=== PATIENT | female | born 1965 | race Caucasian/White ===

== ENCOUNTER 2025-03-10 08:46 | Outpatient (OUT) | payer BC, SELFPAY ==
--- NOTE | 2025-03-10 08:56 | ECG_ITS ---
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 Measurements Intervals [place] Rate: 47 P: 4 OR: 223 QRS: 6 QRSD: 104 T: 10 QT: 435 QTc: 388 Interpretive Statements SINUS BRADYCARDIA WITH FIRST DEGREE AV BLOCK WITH OCCASIONAL SUPRAVENTRICULAR PREMATURE COMPLEXES LOW QRS VOLTAGE IN PRECORDIAL LEADS [QRS DEFLECTION < 1.0 mV IN CHEST LEADS] Abnormal ECG No previous ECG available for comparison Electronically Signed On 03-10-2025 17:48:06 EDT by SANDRA ALONZO M.D.
--- NOTE | 2025-03-10 09:57 | PM.PRESUREVA ---
History of Present Illness History of Present Illness Chief complaint: Right Kidney Stone Narrative: Patient presents for presurgical testing. Please see HPI from Dr. Chawla dated February 19, 2025. Review of Systems ROS Narrative Please see ROS from Dr. Chawla dated February 19, 2025. PFSH PFSH Medical History (Updated 03/10/25 @ 09:34 by Jackelyn Hernandez NP) Hypertension ?I10 - Essential (primary) hypertension (ICD-10) Back pain ?M54.9 - Dorsalgia, unspecified (ICD-10) Osteoarthritis ?M19.90 - Unspecified osteoarthritis, unspecified site (ICD-10) Arthritis ?M19.90 - Unspecified osteoarthritis, unspecified site (ICD-10) Anemia ?D64.9 - Anemia, unspecified (ICD-10) Kidney stones ?N20.0 - Calculus of kidney (ICD-10) Constipation ?K59.00 - Constipation, unspecified (ICD-10) S/P extracorporeal shock wave therapy ?Z98.890 - Other specified postprocedural states (ICD-10) Menopause ?Z78.0 - Asymptomatic menopausal state (ICD-10) Surgical History (Updated 03/10/25 @ 09:29 by Jackelyn Hernandez NP) H/O hemorrhoidectomy ?Z98.890 - Other specified postprocedural states (ICD-10) H/O vein stripping ?Z98.890 - Other specified postprocedural states (ICD-10) S/P cataract extraction and insertion of intraocular lens ?Z98.49 - Cataract extraction status, unspecified eye (ICD-10) ?Z96.1 - Presence of intraocular lens (ICD-10) History of colonoscopy ?Z98.890 - Other specified postprocedural states (ICD-10) S/P ureteral stent placement ?Z96.0 - Presence of urogenital implants (ICD-10) S/P cystoscopy ?Z98.890 - Other specified postprocedural states (ICD-10) H/O ureteroscopy ?Z98.890 - Other specified postprocedural states (ICD-10) Family History (Updated 03/10/25 @ 09:29 by Jackelyn Hernandez NP) Other Family history of breast cancer Family history of hypertension Social History (Updated 03/10/25 @ 09:26 by Jackelyn Hernandez NP) Within the past year, how often did you have a drink containing alcohol: 2-4 times a month Smoking status: Never smoker Non-prescribed substance use: cannabis (any form) Previous occupational history: Retired -[employer] Highest level of school completed/degree received: Associate degree: academic program Meds Home Medications and Allergies Home Medications ?Medication ?Instructions ?Recorded ?Confirmed ?Type amlodipine 5 mg-benazepril 10 mg 1 cap PO DAILY 03/10/25 03/10/25 History capsule hydrochlorothiazide 12.5 mg capsule 12.5 mg PO DAILY 03/10/25 03/10/25 History magnesium citrate 100 mg capsule 200 mg PO DAILY 03/10/25 03/10/25 History metoprolol succinate 50 mg 50 mg PO DAILY 03/10/25 03/10/25 History tablet,extended release 24 hr multivitamin (Daily Multi-Vitamin 1 tab PO DAILY 03/10/25 03/10/25 History tablet) Allergies Allergy/AdvReac Type Severity Reaction Status Date / Time latex Allergy Rash Verified 03/10/25 09:23 Sulfa (Sulfonamide Allergy Rash Verified 03/10/25 09:23 Antibiotics) Exam Narrative Exam Narrative: Constitutional: Awake, alert, comfortable, well-appearing, nontoxic, interactive, vital signs as charted Head: Normocephalic, atraumatic Neck: Supple, normal appearance, normal range of motion, no meningeal signs, no lymphadenopathy Respiratory: No respiratory distress, breath sounds clear Cardiovascular: Bradycardic rate, regular rhythm, no murmur Abdomen: Nontender, normal bowel sounds, soft, no CVA tenderness Musculoskeletal: Normal gait, no swelling or edema Skin: No rashes or induration, no lesions, only visible skin inspected Neuro: No neurological deficits, normal sensation Psychiatric: Oriented ?3, normal affect Assessment and Plan Assessment and Plan (1) Kidney stones: Plan Cystoscopy, right retrograde, right ureteroscopy, holmium laser, possible right stent placement scheduled with Dr. Chawla March 20, 2025.
[2025-03-10 09:59] LABS: Hematocrit 39.2 % (36.0-48.0); Hemoglobin 13.7 g/dL (12.0-16.0); Immature Granulocytes Abs Auto 0.01 10^3/uL (0.00-0.03); Immature Granulocytes Pct Auto 0.2 % (0.0-0.5); Lymphocytes Absolute Auto 1.3 10^3/uL (1.2-3.8); Mean Corpuscular HGB Conc 34.9 g/dL (29.9-35.2); Mean Corpuscular Hemoglobin 31.9 pg (26.7-34.0); Mean Corpuscular Volume 91.2 fL (81.0-99.0); Platelet Count 218 10^3/uL (150-450); Red Blood Count 4.30 10^6/uL (4.20-5.40); White Blood Count 5.2 10^3/uL (4.0-11.0)
[2025-03-10 10:14] LABS: INR 1.02; Partial Thromboplastin Time 27.3 sec (22.3-36.2); Prothrombin Time 10.8 sec (9.0-11.6)
[2025-03-10 10:18] LABS: Anion Gap 8.4; Blood Urea Nitrogen 13.0 mg/dL (7.0-18.0); Calcium 9.5 mg/dL (8.5-10.1); Carbon Dioxide 30.0 mmol/L (21.0-32.0); Chloride 107 mmol/L (98-107); Estimated GFR (African America >60 (>=60 mL/min/1.73m^2); Estimated GFR (Non-African Ame >60 (>=60 mL/min/1.73m^2); Glucose 111 mg/dL (74-106); Potassium 4.4 mmol/L (3.5-5.1); Sodium 141 mmol/L (136-145)
== END 2025-03-10 08:47 | disposition home or self-care (01) ==
LOC: PST 08:50
PROVIDERS: PCP Family Medicine; Visit Provider Urology
DX: Z01.810 Encounter for preprocedural cardiovascular examination (principal); Z01.812 Encounter for preprocedural laboratory examination; Z01.818 Encounter for other preprocedural examination; N20.0 Calculus of kidney
CPT/HCPCS: 80048; 85025; 85610; 85730; 93005; G0463

== ENCOUNTER 2025-03-20 08:16 | Day surgery (SDC) | payer BC, SELFPAY ==
[2025-03-10 09:49] VITALS: BP 156/83; PULSE 50; TEMP 36.2; O2SAT 98; BMI 46.2
[2025-03-20] VITALS (12 sets, daily range): BP systolic 121–165; BP diastolic 72–99; PULSE 49–80; TEMP 36.4–36.8; O2SAT 93–99; BMI 45.4
[2025-03-20] MEDS: CEFAZOLIN SODIUM 2 GM/50 ML D5W PREMIX IV (09:04)
--- NOTE | 2025-03-20 10:08 | P.URON_ITS ---
Urology Surgery Operative Note Operative Note Procedure Date: 03/20/25 Time Out Performed: yes Pre-op Diagnosis: Right renal calculi Post-op Diagnosis: same as pre-op Procedures performed: 1. Cystoscopy. 2. Right ureteroscopy. 3. Right pyeloscopy. 4. Thulium laser lithotripsy of a large right renal calculus. 5. Stone fragment basket extraction. 6. Placement of 6 Panamanian variable length right ureteral stent Anesthesia: MARK Primary Surgeon: Kirk Chawla Complications: None Estimated blood loss (mL): 2 Findings: Large hard right lower pole renal calculus Specimens: Right renal calculus fragments Drains: 6 Panamanian variable length right ureteral stent Indications for Procedures: This lady has recurrent nephrolithiasis. On her right side in the lower pole she has a 1 cm stone. She is desirous for ureteroscopic laser lithotripsy and possible right stent placement. She has signed an informed consent after risks were explained. Detailed description of Procedure: The patient was brought to the operating room and placed on the operating room table in the supine position. SCDs were placed on the lower extremities and turned on and functioning during the entire case. Timeout was done by all parties in the room. We all agreed upon the patient's identification and the planned procedures for this patient. Genn. anesthesia was then administered. The patient was then repositioned into the modified dorsal lithotomy position. All pressure points were satisfactorily padded. Genitalia were sterilely prepped and draped in usual fashion. I started by passing a 22 Panamanian Olympus cystoscope per urethra and into the bladder. Panendoscopy in the bladder revealed no evidence of any lesions tumors or stones. I then passed a Glidewire through the scope and up the right ureter and into the kidney. 1 could see the stone in the lower pole via fluoroscopy. The scope was removed. I then passed a 10/12 Panamanian ureteral access sheath over the wire and up to the L5 position. The wire and stylette were then removed. I then passed a flexible ureteroscope through the access sheath and into the ureter. I then ascended up the ureter and then went into the kidney and scoped throughout all of the upper mid and lower pole calyces. There were a couple Jj's plaques in the lower pole. There were no stones in the upper or mid calyces. In the lower pole I did encounter a large very hard appearing stone. We then passed a 270 Angstrom laser fiber through the scope. I set the thulium laser at dusting at power level 10 initially but this was not enough. We had to increase to power level 15. We then began dusting the stone. It steadily fragmented and dusted. I saved a few fragments near the end. I then passed a 0 tip nitinol basket and engaged the fragments and these were extracted and sent for stone analysis. Upon completion, there was no endoscopic evidence of stone, just copious amounts of stone dust. Fluoroscopically no more stone was visible. The scope was then removed. The Glidewire was passed through the sheath into the kidney and the sheath was then removed. The scope was backloaded over the wire and passed into the bladder. I then slid a 6 Panamanian variable length stent over the wire up into the kidney. The wire was removed and there were good curls in the kidney and in the bladder. The bladder was drained of its contents and the scope was then removed. She was then [facility] and wheeled to PACU in stable condition.
== END 2025-03-20 12:20 | disposition home or self-care (01) ==
LOC: SURGOUT 08:17
PROVIDERS: PCP Family Medicine; Visit Provider Urology
PROC: (CPT 918; principal; 2025-03-20 09:10)
DX: N20.0 Calculus of kidney (principal); Z87.442 Personal history of urinary calculi; E66.01 Morbid (severe) obesity due to excess calories; Z68.42 Body mass index [BMI] 45.0-49.9, adult; I10 Essential (primary) hypertension; M19.90 Unspecified osteoarthritis, unspecified site
CPT/HCPCS: 52356; 36415; 76000; 82365; 99999; J0131; J0690; J1100; J1885; J2250; J2405; J2704; J3010

== ENCOUNTER 2025-05-06 08:13 | Outpatient (OUT) | payer BC, SELFPAY ==
--- OUTSIDE RECORDS SUMMARY | 2025-04-29 10:53 | XMS_ITS | Encounter Summary ---
Author Organization [facility] Address [facility] [place] [address] Care Team Providers Care Academic Affairs Specialist Name Role Phone Zeke Velasquez DO Primary Care Provider + David Valdivia MD Unavailable [phone] Source Comments In the event this information is protected by the Federal Confidentiality of Alcohol and Drug AbusePatient Records regulations: The Federal rules restrict any use of the information to criminally investigate or prosecute any alcohol or drug abuse patient.[facility] Encounter Details Date Type Department Care Team (Late st Contact Info) Description 12/03/2018 Patient Msg Urology [address] [address] Nancy Gloria, MICHELLE.MARKETING OUTREACH COORDINATOR [address] [place], [place] [id number] RE:Stone Meds Social History Tobacco Use Types Packs/Day Years Used Date Smoking Tobacco: Never Smokeless Tobacco: Never PHQ-2 Answer Date Recorded PHQ2 Score 0 10/15/2018 Comments Unknown Sex and Gender Information Value Date Recorded Sex Assigned at Not on file Legal Sex Female 11:50 AM EST Gender Identity Not on file Sexual Orientation Not on file documented as of this encounter Functional Status * Are you deaf or do you have serious difficulty hearing? Answer Date of Assessment Author No 10/16/2018 12:11 PM EDT Naz Morocho RN * Are you blind or do you have serious difficulty seeing, even when wearing glasses? Answer Date of Assessment Author No 10/16/2018 12:11 PM EDT Naz Morocho RN * Do you have serious difficulty walking or climbing stairs? Answer Date of Assessment Author No 10/16/2018 12:11 PM EDT Naz Morocho RN * Do you have difficulty dressing or bathing? Answer Date of Assessment Author No 10/16/2018 12:11 PM EDT Naz Morocho RN * Because of a physical, mental, or emotional condition, do you have difficulty doing errands alone such as visiting a doctor's office or shopping? Answer Date of Assessment Author No 10/16/2018 12:11 PM TOBIT Naz Morocho RN documented as of this encounter Mental Status * Because of a physical, mental, or emotional condition, do you have serious difficulty concentrating, remembering, or making decisions? Answer Entry Date Author No 10/16/2018 12:11 PM TOBIT Naz Morocho RN documented in this encounter Plan of Treatment Not on file documented as of this encounter Visit Diagnoses Not on filedocumented in this encounter Care Teams Academic Affairs Specialist Relationship Specialty Start Date End Date Zeke Velasquez DO PCP - General Family Medicine 09/13/18 David Valdivia MD [address] [place] [address] Referring Urology 09/13/18 documented as of this encounter
--- OUTSIDE RECORDS SUMMARY | 2025-04-29 10:53 | XMS_ITS | Encounter Summary ---
Author Organization [facility] Address [facility] [place] [address] Care Team Providers Care Continuous Improvement Specialist Name Role Phone Zeke Velasquez DO Primary Care Provider + David Valdivia MD Unavailable [phone] Source Comments In the event this information is protected by the Federal Confidentiality of Alcohol and Drug AbusePatient Records regulations: The Federal rules restrict any use of the information to criminally investigate or prosecute any alcohol or drug abuse patient.[facility] Encounter Details Date Type Department Care Team (Late st Contact Info) Description 12/25/2018 Patient Msg Urology [address] [address] Nancy Gloria, MICHELLE.STORE OPERATIONS ASSOCIATE [address] [place], [place] [phone] labs Social History Tobacco Use Types Packs/Day Years [...] 10/16/2018 12:11 PM EDT Naz Morocho RN documented as of this encounter Mental Status * Because of a physical, mental, or emotional condition, do you have serious difficulty concentrating, remembering, or making decisions? Answer Entry Date Author No 10/16/2018 12:11 PM EDT Naz Morocho RN documented in this encounter Plan of Treatment Not on file documented as of this encounter Visit Diagnoses Not on filedocumented in this encounter Care Teams Continuous Improvement Specialist Relationship Specialty Start Date End Date Zeke Velaqsuez DO PCP - General Family Medicine 09/13/18 David Valdivia MD [address] [place] [address] Referring Urology 09/13/18 documented as of this encounter
--- OUTSIDE RECORDS SUMMARY | 2025-04-29 10:54 | XMS_ITS | Clinical Summary ---
Author Organization [facility] Address [address] [place] [address] Care Team Providers Care Carbon Furnace Operator Name Role Phone Unavailable Primary Care Provider Unavailabl e Social History Tobacco Use Types Packs/Day Years Used Date Smoking Tobacco: Never Assessed Comments Unknown Sex and Gender Information Value Date Recorded Sex Assigned at Not on file Legal Sex Female 7:17 PM EDT Gender Identity Not on file Sexual Orientation Not on file Last Filed Vital Signs Vital Sign Reading Time Taken Comments Blood Pressure - - Pulse - - Temperature - - Respiratory Rate - - Oxygen Saturation - - Inhaled Oxygen Concentration - - Weight 137 kg (303 lb) 04/22/2020 12:00 PM EDT Height 162.6 cm (5' 4 ) 04/22/2020 12:00 PM EDT Body Mass Index 52.01 04/22/2020 12:00 PM EDT Plan of Treatment Not on file Insurance [employer]
--- OUTSIDE RECORDS SUMMARY | 2025-04-29 10:54 | XMS_ITS | Encounter Summary ---
Author Organization [facility] Address [facility] [place] [address] Care Team Providers Care Otolaryngology Surgeon Name Role Phone Zeke Velasquez DO Primary Care Provider + David Valdivia MD Unavailable [phone] Source Comments In the event this information is protected by the Federal Confidentiality of Alcohol and Drug AbusePatient Records regulations: The Federal rules restrict any use of the information to criminally investigate or prosecute any alcohol or drug abuse patient.[facility] Encounter Details Date Type Department Care Team (Late st Contact Info) Description 04/14/2019 Patient Msg Urology [address] [phone] Nancy Gloria APRN.POOL FINISHER [address] [place], [place] [phone] RE:24 HR TEST Social History Tobacco Use Types Packs/Day Years [...] on filedocumented in this encounter Care Teams Otolaryngology Surgeon Relationship Specialty Start Date End Date Zeke Velasquez DO PCP - General Family Medicine 09/13/18 David Valdivia MD [address] [place] [address] Referring Urology 09/13/18 documented as of this encounter
--- OUTSIDE RECORDS SUMMARY | 2025-04-29 10:54 | XMS_ITS | Encounter Summary ---
Author Organization [facility] Address [facility] [place] [address] Care Team Providers Care Core Finisher Name Role Phone Zeke Velasquez DO Primary Care Provider + David Valdivia MD Unavailable [phone] Source Comments In the event this information is protected by the Federal Confidentiality of Alcohol and Drug AbusePatient Records regulations: The Federal rules restrict any use of the information to criminally investigate or prosecute any alcohol or drug abuse patient.[facility] Encounter Details Date Type Department Care Team (Late st Contact Info) Description 10/16/2018 Patient Msg Urology [address] [address] Nancy Gloria, MICHELLE.MOTION PICTURE PROJECTIONIST [address] [place], [place] [phone] Stone mgmt Social History Tobacco Use Types Packs/Day Years [...] on filedocumented in this encounter Care Teams Core Finisher Relationship Specialty Start Date End Date Zeke Velasquez DO PCP - General Family Medicine 09/13/18 David Valdivia MD [address] [place] [address] Referring Urology 09/13/18 documented as of this encounter
--- OUTSIDE RECORDS SUMMARY | 2025-04-29 10:54 | XMS_ITS | Clinical Summary ---
Author Organization [facility] Address [address] [place] [address] Care Team Providers Care Lipcoat Sprayer Name Role Phone Zeke Velasquez DO Primary Care Provider + David Valdivia MD Unavailable [phone] Allergies Active Allergy Reactions Criticality Noted Date Comments Latex Rash Medium 09/25/2018 Sulfa (Sulfonamide Antibiotics) Rash Medium 11/2018 Medications Norgestrel-Ethi nyl Estradiol (LOW-OGESTREL) 0.3-30 mg-mcg per tablet Take 1 tablet by mouth once daily. Active amLODIPine-robert zepril (LOTREL) 5-10 mg per capsule Take 1 capsule by mouth once daily. Active oxybutynin XL (DITROPAN XL) 5 mg 24 hr tablet Take 5 mg by mouth twice daily. Active metoprolol tartrate, short acting, (LOPRESSOR) 50 mg tablet Take 50 mg by mouth once daily. Active triamcinolone acetonide (NASACORT) 55 mcg nasal inhaler Use 2 Sprays in the nose as needed. Active MULTIVITAMIN ORAL Take by mouth once daily. Active Cholecalciferol , Vitamin D3, (VITAMIN D-3) 2,000 unit cap Take by mouth once daily. Active acetaminophen (TYLENOL EXTRA STRENGTH) 500 mg tablet Take 500 mg by mouth every 8 hours as needed. Active Hydrochlorothia zide 12.5 mg capsule Take 1 capsule by mouth twice daily. 60 capsule 6 04/14/2019 Active Active Problems Problem Noted Date Diagnosed Date Obesity, Class III, BMI >= 40 10/15/2018 Immunizations Immunization Administration Dates Next Due influenza (IIV3) vaccine, tr ivalent (AFLURIA, FLULAVAL, FLUVIRIN, FLUZONE) 05/16/2018 Social History Tobacco Use Types Packs/Day Years Used Date Smoking Tobacco: Never Smokeless Tobacco: Never PHQ-2 Answer Date Recorded PHQ2 Score 0 10/15/2018 Area Deprivation Index Answer Date Derrick rded National Score (1-100), lower number is lower ri sk Not on file 06/30/2020 State Score (1-10), lower number is lower risk N ot on file 06/30/2020 Data from: https://www.neighborhoodatlas.medicine.[facility]/. Last address used for calculation Not on file 06/30/2020 Comments Unknown Sex and Gender Information Value Date Recorded Sex Assigned at Not on file Legal Sex Female 11:50 AM EST Gender Identity Not on file Sexual Orientation Not on file Last Filed Vital Signs Vital Sign Reading Time Taken Comments Blood Pressure 141/82 10/16/2018 6:51 AM EDT Pulse 84 10/16/2018 6:51 AM EDT Temperature 36.5 C (97.7 F) 10/16/2018 6:51 AM EDT Respiratory Rate 18 10/16/2018 6:51 AM EDT Oxygen Saturation 96% 10/16/2018 6:51 AM EDT Inhaled Oxygen Concentration - - Weight 137.9 kg (304 lb) 10/15/2018 7:22 AM EDT Height 160 cm (5' 3 ) 10/15/2018 7:22 AM EDT Body Mass Index 53.85 10/15/2018 7:22 AM EDT Plan of Treatment Health Maintenance Due Date Last Done Comments Anxiety Screening 1983 Depression Screening 1983 HIV Screening 1983 Hepatitis C Screening 1983 DTaP,Tdap,Td Vaccine (1 - Tdap) 1984 Cervical Cancer Screening [address] Colonography 2010 Cologuard (FIT-DNA) 2010 Colonoscopy 2010 Colorectal Cancer Screening 2010 Fecal Occult Blood 2010 Lipid Screening 2010 Sigmoidoscopy 2010 Pneumococcal Vaccine: 50+ (1 of 1 - PCV) 2015 Shingrix Vaccine (1 of 2) 2015 Diabetes Screening 10/16/2021 10/16/2018, 0 10/15/2018, 09/25/2018 Covid-19 Vaccine ( season) 2025 Influenza Vaccine (#1) 2025 05/16/2018, 2008 Medical Devices Implanted Type Area Wood Products Manufacturer Device Identifier Shelf Expiration Date Model / Serial / Lot Stent Inlay [employer] 7fr Taper [place] Green Polymer Phreecoat 24cm Ureteral - [id number] Implanted:Qty : 1 on 10/15/2018 by Sandor Lewis MD at [facility]rolog[facility] Stents Left: Ureter [employer] 12/05/2022 [id number] / / [id number] Stent Inlay Candel[employer] [place]rib[place] 7fr Taper [place] Green Polymer Phreecoat 24cm Ureteral - [id number] Implanted:Qty : 1 on 10/15/2018 by Sandor Lewis MD at [facility] Urologic Stents Right: Ureter [employer] 12/05/2022 [id number] / / [id number] Procedures Procedure Name Priority Date/Time Associated Diagnosis Comments BASIC METABOLIC PANEL Routine 10/16/2018 4:29 AM EDT from Last 3 Months or Most Recently Relevant to Health Maintenance Results * BASIC METABOLIC PNL (10/16/2018 4:29 AM EDT) [facility] Signature Glucose 94 74 - 99 mg/dL 10/16/2018 6:40 AM EDT [facility] Comment: The [place] Diabetes Association (ADA) provides guidance for cutoff values for fasting glucose and random glucose. The ADA defines fasting as no caloric intake for at least 8 hours. Fasting plasma glucose results between 100 to 125 mg/dL indicate increased risk for diabetes (prediabetes). Fasting plasma glucose results greater than or equal to 126 mg/dL meet the criteria for diagnosis of diabetes. In the absence of unequivocal hyperglycemia, results should be confirmed by repeat testing. In a patient with classic symptoms of hyperglycemia or hyperglycemic crisis, random plasma glucose results greater than or equal to 200 mg/dL meet the criteria for diagnosis of diabetes. Reference: Standards of Medical Care in Diabetes 2016, [place] Diabetes Association. Diabetes Care. 2016.39(Suppl 1). BUN 8 7 - 21 mg/dL 10/16/2018 6:40 AM EDT [facility] Creatinine 0.68 0.58 - 0.96 mg/dL 10/16/2018 6:40 AM EDT [facility] Sodium 141 136 - 144 mmol/L 10/16/2018 6:40 AM EDT [facility] Potassium 3.8 3.7 - 5.1 mmol/L 10/16/2018 6:40 AM EDT [facility] Chloride 104 97 - 105 mmol/L 10/16/2018 6:40 AM EDT [facility] CO2 24 22 - 30 mmol/L 10/16/2018 6:40 AM EDT [facility] Anion Gap 13 9 - 18 mmol/L 10/16/2018 6:40 AM T [facility] Calcium 9.0 8.5 - 10.2 mg/dL 10/16/2018 6:40 AM [facility] eGFR- >60 10/16/2018 6:40 AM [facility] eGFR-All Other Races >60 . 10/16/2018 6:40 AM [facility] Comment: eGFR (Estimated GFR) Units of measure: mL/min/1.73 meters squared eGFR is derived from the reexpressed MDRD Study equation using the following parameters: serum creatinine, age, gender and race. The creatinine assay has been calibrated to be traceable to IDMS. An eGFR <60 mL/min/1.73m2 for >3 months is consistent with chronic kidney disease. Refer to KDOQI guidelines for clinical interpretation. In patients with unstable renal function, e.g. those with acute kidney injury, the eGFR may not accurately reflect actual GFR. Blood specimen (specimen) BLOOD SPECIMEN / Unknown 10/16/2018 4:29 AM EDT 10/16/2018 4:31 AM EDT us Sandor Lewis MD LABORATORY Final Result [facility] [address] [place] [address] [facility] [address] [place] [address] from Last 3 Months or Most Recently Relevant to Health Maintenance Insurance [employer] Care Teams Lipcoat Sprayer Relationship Specialty Start Date End Date Zeke Velasquez DO PCP - General Family Medicine 09/13/18 David Valdivia MD [address] [place] [address] Referring Urology 09/13/18
--- OUTSIDE RECORDS SUMMARY | 2025-04-29 10:54 | XMS_ITS | Encounter Summary ---
Author Organization [facility] Address [facility] [place] [address] Care Team Providers Care Dental Financial Coordinator Name Role Phone Zeke Velasquez DO Primary Care Provider + David Valdivia MD Unavailable [phone] Source Comments In the event this information is protected by the Federal Confidentiality of Alcohol and Drug AbusePatient Records regulations: The Federal rules restrict any use of the information to criminally investigate or prosecute any alcohol or drug abuse patient.[facility] Encounter Details Date Type Department Care Team (Late st Contact Info) Description 04/22/2019 Get Medical Advice Urology [address] [address] Nancy Gloria APRN.LEGAL EXAMINER [address] [place], [place] [phone] RE: Non-Urgent Medical Question Social History Tobacco Use Types Packs/Day Years [...] on filedocumented in this encounter Care Teams Dental Financial Coordinator Relationship Specialty Start Date End Date Zeke Velasquez DO PCP - General Family Medicine 09/13/18 David Valdivia MD [address] [place] [address] Referring Urology 09/13/18 documented as of this encounter
--- OUTSIDE RECORDS SUMMARY | 2025-04-29 10:54 | XMS_ITS | Encounter Summary ---
Author Organization [facility] Address [address] [place], [place] [id number] Care Team Providers Care Security Guard Dispatcher Name Role Phone Zeke Velasquez DO Primary Care Provider + David Valdivia MD Unavailable [phone] Source Comments In the event this information is protected by the Federal Confidentiality of Alcohol and Drug AbusePatient Records regulations: The Federal rules restrict any use of the information to criminally investigate or prosecute any alcohol or drug abuse patient.[facility] Encounter Details Date Type Department Care Team (Late st Contact Info) Description 10/17/2018 Patient Msg Urology [address] [phone] Provider, [facility] Testing and follow up appointment with nia Social History Tobacco Use Types Packs/Day Years [...] on filedocumented in this encounter Care Teams Security Guard Dispatcher Relationship Specialty Start Date End Date Zeke Velasquez DO PCP - General Family Medicine 09/13/18 David Valdivia MD [address] [facility] [place] [address] Referring Urology 09/13/18 documented as of this encounter
--- OUTSIDE RECORDS SUMMARY | 2025-04-29 10:54 | XMS_ITS | Clinical Summary ---
Author Organization [facility] Address [address] [place] [address] Phone Care Team Providers Care Admission Liaison Name Role Phone Unavailable Primary Care Provider Unavailabl e Social History Tobacco Use Types Packs/Day Years Used Date Smoking Tobacco: Never Assessed Comments Unknown Sex and Gender Information Value Date Recorded Sex Assigned at Not on file Legal Sex Female 6:43 PM EST Gender Identity Not on file Sexual Orientation Not on file Plan of Treatment Not on file
[2025-05-06 08:59] LABS: Blood Urea Nitrogen 15.0 mg/dL (7.0-18.0); Calcium 9.5 mg/dL (8.5-10.1); Carbon Dioxide 31.1 mmol/L (21.0-32.0); Chloride 103 mmol/L (98-107); Estimated GFR (African America >60 (>=60 mL/min/1.73m^2); Estimated GFR (Non-African Ame >60 (>=60 mL/min/1.73m^2); Sodium 142 mmol/L (136-145); Uric Acid 3.2 mg/dL (2.6-6.0)
[2025-05-06 09:05] LABS: Calcium 24 Hour Urine 247.5 mg/24hr (100.0-300.0); Creatinine 24 Hour Urine 1242.45 mg/24 hr (800.00-1800.00); Total Volume 24 Hour Urine 2750 mL/24hr
[2025-05-07 12:09] LABS: Magnesium, U 6.0 mg/dL (Not Estab.); Magnesium,Urine 24hr 165.0 mg/24 hr (12.0-293.0); Phosphorus, Urine 27.5 mg/dL (Not Estab.); Phosphorus,Urine 24h 756 mg/24 hr (261-1078); Uric Acid, Urine 23.0 mg/dL (Not Estab.); Uric Acid,Urine 24hr 632.5 mg/24 hr (173.7-902.1)
[2025-05-08 07:09] LABS: Citric Acid, U, 24hr 734 mg/24 hr (320-1240); Citric Acid, Urine 267 mg/L (Undefined)
[2025-05-08 08:15] LABS: BOX Test Date Sent 10/14/25; BOX Test Reference Lab CLEVELAND; BOX Test Sent Out OXALATE
== END 2025-05-06 08:14 | disposition home or self-care (01) ==
LOC: LAB 08:13
PROVIDERS: PCP Family Medicine; Visit Provider Urology
DX: N20.0 Calculus of kidney (principal)
CPT/HCPCS: 36415; 82310; 82340; 82374; 82435; 82507; 82565; 82570; 83735; 83945; 83970; 84100; 84105; 84295; 84300; 84520; 84550; 84560